=== PATIENT | female | born 1985 | race Caucasian/White ===

== ENCOUNTER 2020-02-27 13:38 | Emergency (ER) | payer BC, SELFPAY ==
--- NOTE | ~2020-02-27 | XR_ITS ---
XR ankle RT min 3V 02/27/2020 14:14 INDICATION: Right ankle pain PROCEDURE: 4 views right ankle COMPARISON: No prior studies for comparison. FINDINGS: Fracture, dislocation or subluxation is not identified. Ankle mortise intact. The soft tiss ues appear within normal limits. No foreign bodies are identified. IMPRESSION: 1: NO ACUTE BONE OR JOINT ABNORMALITY IDENTIFIED. Reviewed, dictated and finalized at location A.
[2020-02-27 13:41] VITALS: BP 111/75; PULSE 77; RESP 18; TEMP 36.7; O2SAT 99
--- NOTE | 2020-02-27 14:25 | ED.GENADULT ---
HPI - General Adult General Chief complaint: Extremity Injury, Lower Stated complaint: Ankle injury Time Seen by Provider: 02/27/20 13:40 Source: patient Mode of arrival: ambulatory Limitations: no limitations History of Present Illness HPI narrative: Patient is a 34-year-old female who presents with right lateral ankle pain and swelling after falling off her skateboard last night noting since she has continued to have moderate aching pain with difficulty bearing weight pain radiates to just above the ankle denies other injuries or complaints and on arrival is resting comfortably in the room in no distress Related Data Allergies Allergy/AdvReac Type Severity Reaction Status Date / Time aspirin Allergy Unknown Verified 08/19/18 16:02 Review of Systems Review of Systems: Narrative: CONSTITUTIONAL: Denies fever, chills SKIN: Positive for bruising and swelling MUSCULOSKELETAL: Positive for right ankle pain and swelling NEUROLOGIC: Denies numbness or tingling PMFSH Social History Social History (Updated 02/27/20 @ 14:26 by Jef Cavazos PA-C) Smoking status: Current every day smoker Exam Narrative: Exam Narrative: GENERAL: Well-appearing, well-nourished, and in no acute distress. HEAD: Normocephalic, atraumatic. EYES: PERRLA and EOMI. ENT: Nares clear, no rhinorrhea or epistaxis. Mucous membranes moist. EXTREMITIES: Swelling tenderness of the right ankle SKIN: Warm, dry, no rash. Bruising and swelling of the lateral right ankle NEURO: No focal deficits. Alert and oriented x3. Neurovascularly intact. PSYCH: Normal mood and affect. Course Course Emergency Course: Patient in the room in no distress aware of case findings treatment plan and diagnosis agreeing to follow-up as directed or to return if symptoms worsen or concern Vital Signs Vital signs: Vital Signs Temperature 98.0 F 02/27/20 13:41 Pulse Rate 77 02/27/20 13:41 Respiratory Rate 18 02/27/20 13:41 Blood Pressure 111/75 02/27/20 13:41 Pulse Oximetry 99 02/27/20 13:41 Temperature 98.0 F 02/27/20 13:41 Pulse Rate 77 02/27/20 13:41 Respiratory Rate 18 02/27/20 13:41 Blood Pressure 111/75 02/27/20 13:41 Pulse Oximetry 99 02/27/20 13:41 Medical Decision Making MDM Narrative Medical decision making narrative: Patients injury or pain is consistent with musculoskeletal etiology. No signs of neurological or vascular compromise on exam. Compartments and tisues are soft without signs of compartment syndrome. Pain is felt appropriate for further evaluation on an outpatient basis. Vital Signs Vital Signs: Vital Signs Temperature 98.0 F 02/27/20 13:41 Pulse Rate 77 02/27/20 13:41 Respiratory Rate 18 02/27/20 13:41 Blood Pressure 111/75 02/27/20 13:41 Pulse Oximetry 99 02/27/20 13:41 Temperature 98.0 F 02/27/20 13:41 Pulse Rate 77 02/27/20 13:41 Respiratory Rate 18 02/27/20 13:41 Blood Pressure 111/75 02/27/20 13:41 Pulse Oximetry 99 02/27/20 13:41 Imaging Data Radiologist's impression: ITS Impressions Ankle X-Ray 02/27/20 14:15 IMPRESSION: 1: NO ACUTE BONE OR JOINT ABNORMALITY IDENTIFIED. Discharge Plan Discharge Clinical Impression: Ankle sprain and strain Patient Disposition: Home, Self-Care Condition: Stable Instructions: Antibiotic Form, Ankle Sprain (DC) Additional Instructions: Wear brace and use crutches. No weight on the affected leg until able to bear weight without pain. Ice and elevate extremity. Pain medication as needed and directed. Follow up with your doctor for further care in the next 7 days. Return if symptoms worsen or concerns Follow-up/Referrals: Sarmad Prado MD [Physician] - PHYSICIAN,DIE BAKER [Primary Care Provider] -
[2020-02-27 15:29] VITALS: BP 122/87; PULSE 59; RESP 14; O2SAT 99
== END 2020-02-27 15:30 | disposition home or self-care (01) ==
PROVIDERS: Emergency Provider Emergency Medicine
DX: S93.401A Sprain of unspecified ligament of right ankle, initial encounter (principal); S96.911A Strain of unspecified muscle and tendon at ankle and foot level, right foot, initial encounter; Y93.51 Activity, roller skating (inline) and skateboarding; V00.131A Fall from skateboard, initial encounter; F17.200 Nicotine dependence, unspecified, uncomplicated
CPT/HCPCS: 73610; 99283